=== PATIENT | female | born 1950 | race African-American/Black ===

== ENCOUNTER 2018-05-11 15:04 | Inpatient (IN) | payer MEDICAID, MEDICARE ==
[~2018-05-11] VITALS: Ht 162.6 cm; Wt 100.2 kg
[~2018-05-11 15:04] MED LIST: APAP/CODEINE; ASPRIN; CLONAZEPAM; IBUPROFEN; LOVASTATIN; NEXIUM; [UNRECOGNIZED DRUG - CODE]
[2018-05-11] MEDS ORDERED: SODIUM CHLORIDE 0.9% 1,000 ML IV ONE (15:38)
[2018-05-11] MEDS ORDERED: METHYLPREDNISOLONE SOD SUCC 125 MG/2 ML VIAL IV ONE (15:45)
[2018-05-11 16:09] LABS: BASOPHILS % 0.6 % (0.0-2.0); HEMATOCRIT. 49.1 % (36.0-48.0); HEMOGLOBIN. 15.7 g/dL (12.0-16.0); LYMPHOCYTES % 31.8 % (20.0-50.0); MEAN CORPUSCULAR HEMOGLOBIN 26.5 pg (28.0-32.0); MEAN CORPUSCULAR VOLUME 82.8 fL (81.0-99.0); MEAN PLATELET VOLUME 9.5 fl (7.4-10.4); MONOCYTES % 7.8 % (2.0-8.0); NEUTROPHILS % 58.8 % (40.0-76.0); PLATELET 327 x1000/uL (130-400); RED BLOOD CELL COUNT 5.94 mill/uL (4.2-5.4); RED CELL DISTRIBUTION WIDTH 15.6 % (11.6-14.6)
[2018-05-11 16:13] LABS: CHLORIDE 106 mEq/L (98-107); INR 1.1; PROTHROMBIN TIME 10.7 sec (9.1-11.1)
[2018-05-11] MEDS ORDERED: HYDROCODONE/ACETAMINOPHEN 5/325MG TABLET PO PRN (17:45)
[2018-05-11] MEDS ORDERED: ACETAMINOPHEN 325MG TABLET PO PRN (17:45)
[2018-05-11] MEDS ORDERED: DEXT 5%/0.45% NACL 1000ML 1,000 ML IV SCH (17:45)
[2018-05-11] MEDS ORDERED: DEXTROSE 50% WATER 50ML SYRINGE IV PRN (17:45)
[2018-05-11] MEDS ORDERED: ACETAMINOPHEN 650MG SUPP PR PRN (17:45)
[2018-05-11] MEDS ORDERED: ONDANSETRON HCL 4MG/2ML INJ IV PRN (17:45)
[2018-05-11] MEDS ORDERED: NA PHOS,M-B/NA PHOS,DI-BA ENEMA 118ML PR PRN (17:45)
[2018-05-11] MEDS ORDERED: IPRATROPIUM/ALBUTEROL 0.5-3(2.5)MG/3ML NEB INH PRN (17:45)
[2018-05-11] MEDS ORDERED: MORPHINE SULFATE 4 MG/ML CPJ (NOT FOR IM USE) IV PRN (19:30)
[2018-05-11] MEDS ORDERED: HYDRALAZINE 20MG/ML VIAL IV PRN (19:30)
[2018-05-11 19:31] LABS: CLARITY URINE CLEAR (CLEAR); COLOR URINE YELLOW (YELLOW); KETONES URINE NEGATIVE (NEGATIVE); LEUKOCYTE ESTERASE URINE 2+ (NEGATIVE); NITRITE URINE POSITIVE (NEGATIVE); OCCULT BLOOD URINE NEGATIVE (NEGATIVE); PROTEIN URINE NEGATIVE (NEGATIVE); SPECIFIC GRAVITY URINE 1.008 (1.005-1.030); UROBILINOGEN URINE 0.2 E.U./dL (0.2-1.0)
[2018-05-11 19:46] LABS: *AMPHETAMINES SCREEN URINE NEGATIVE (NEGATIVE); *BARBITURATES SCREEN URINE NEGATIVE (NEGATIVE); *BENZODIAZEPINES SCREEN URINE NEGATIVE (NEGATIVE); *COCAINE SCREEN URINE PRESUMTIVE POSITIVE (NEGATIVE); METHADONE URINE SCREEN NEGATIVE (NEGATIVE); OPIATES URINE SCREEN NEGATIVE (NEGATIVE)
[2018-05-11 19:47] LABS: CANNABINOID URINE SCREEN NEGATIVE (NEGATIVE); PHENCYCLIDINE URINE SCREEN NEGATIVE (NEGATIVE)
[2018-05-11] MEDS ORDERED: CEFTRIAXONE 1 G PREMIX 50 ML IV ONE (20:30)
[2018-05-11] MEDS ORDERED: BLOOD SUGAR DIAGNOSTIC STRIP TEST SCH (21:00)
[2018-05-11] MEDS ORDERED: DIPHENHYDRAMINE 50MG/ML VIAL IV SCH (22:30)
[2018-05-12] MEDS: METHYLPREDNISOLONE SOD SUCC 40 MG/ML VIAL IV SCH ×3 (00:33→16:20)
[2018-05-12] MEDS: INSULIN LISPRO 100 UNITS/ML SUBCUT SCH ×3 (00:34→13:10)
[2018-05-12 00:40] VITALS: BP 123/68
[2018-05-12] MEDS: DIPHENHYDRAMINE 50MG/ML VIAL IV SCH ×3 (03:24→16:20)
[2018-05-12 04:00] VITALS: BP 116/60
[2018-05-12 08:00] VITALS: BP 140/63
[2018-05-12] MEDS: BLOOD SUGAR DIAGNOSTIC STRIP TEST SCH ×2 (08:10→13:10)
[2018-05-12] MEDS ORDERED: FAMOTIDINE 20MG/2ML VIAL IV SCH ×2 (09:00→21:00)
[2018-05-12] MEDS ORDERED: ENOXAPARIN 40MG/0.4ML SYR SUBCUT SCH (09:00)
[2018-05-12] MEDS ORDERED: CHOL50004 PO (11:51)
[2018-05-12] MEDS ORDERED: ALEN70TA46 PO (11:51)
[2018-05-12] MEDS ORDERED: ACET-2178 PO (11:51)
[2018-05-12] MEDS ORDERED: GABA-531 PO (11:51)
[2018-05-12] MEDS ORDERED: DIPH25TA62 PO (11:51)
[2018-05-12 12:00] VITALS: BP 128/70
[2018-05-12] MEDS ORDERED: LEVOFLOXACIN 500MG PREMIX 100 ML IV SCH (12:00)
[2018-05-12 12:49] LABS: BASOPHILS % 0.3 % (0.0-2.0); HEMATOCRIT. 43.3 % (36.0-48.0); LYMPHOCYTES % 8.1 % (20.0-50.0); MEAN CORPUSCULAR HEMOGLOBIN 26.3 pg (28.0-32.0); MEAN CORPUSCULAR VOLUME 81.5 fL (81.0-99.0); MEAN PLATELET VOLUME 9.7 fl (7.4-10.4); MONOCYTES % 3.9 % (2.0-8.0); NEUTROPHILS % 87.7 % (40.0-76.0); PLATELET 298 x1000/uL (130-400); RED BLOOD CELL COUNT 5.31 mill/uL (4.2-5.4); RED CELL DISTRIBUTION WIDTH 15.5 % (11.6-14.6)
[2018-05-12 13:01] LABS: CHLORIDE 108 mEq/L (98-107)
[2018-05-12 13:09] LABS: LDL CHOLESTEROL 108 mg/dL (5-100)
[2018-05-12 13:10] LABS: HDL CHOLESTEROL 35 mg/dL (40-59); T4 FREE 1.13 ng/dL (0.76-1.46)
[2018-05-12 16:00] VITALS: BP 123/67
[2018-05-12 17:02] VITALS: BP 123/67
== END 2018-05-12 17:46 | disposition home or self-care (01) | DRG 811 ==
LOC: ER 15:04 → 7WST 17:19 → SUPCPDRO 19:14 → ENRESERV 20:36 → EDBEDREQ 21:31
PROVIDERS: ADMIT Internal Medicine; ATTEND Internal Medicine
DX: T78.3XXA Angioneurotic edema, initial encounter (principal); B19.20 Unspecified viral hepatitis C without hepatic coma; D72.829 Elevated white blood cell count, unspecified; E11.9 Type 2 diabetes mellitus without complications; E66.9 Obesity, unspecified; E78.00 Pure hypercholesterolemia, unspecified; T46.4X5A Adverse effect of angiotensin-converting-enzyme inhibitors, initial encounter; E78.5 Hyperlipidemia, unspecified; I10 Essential (primary) hypertension; J98.11 Atelectasis; N28.9 Disorder of kidney and ureter, unspecified; Z68.37 Body mass index [BMI] 37.0-37.9, adult; Z79.899 Other long term (current) drug therapy; Z79.82 Long term (current) use of aspirin; Y92.89 Other specified places as the place of occurrence of the external cause
CPT/HCPCS: 36415; 71045; 80061; 80305; 82962; 83036; 84439; 84443; 86850; 86900; 86927; 87077; 87186; 93005; 93306; 93970; 96361; 96365; 96375; 99291; J0696; J1200; J1650; J1815; J1956; J2270; J2405; J2920; J2930; J3490; J7030; P9017

== ENCOUNTER 2019-10-25 22:28 | Inpatient (IN) | payer MEDICARE, MEDICAID ==
[~2019-10-25] VITALS: Ht 170.2 cm; Wt 87.1 kg
[~2019-10-25 22:28] MED LIST changes: +ALEN70TA68 PO; -APAP/CODEINE; +CHOL50004 PO; +DIPH25TA62 PO; +GABA-531 PO; +TOPUD PO; -[UNRECOGNIZED DRUG - CODE]
[2019-10-25] MEDS ORDERED: HYDROCODONE/ACETAMINOPHEN 10/325MG TABLET PO ONE (23:00)
[2019-10-25 23:18] LABS: HEMATOCRIT 43.6 % (36.0-48.0); HEMOGLOBIN 14.7 g/dL (12.0-16.0); MEAN CORPUSCULAR VOLUME 80.5 fL (81.0-99.0); PLATELET 261 x1000/uL (130-400); RED BLOOD CELL COUNT 5.42 mill/uL (4.2-5.4); RED CELL DISTRIBUTION WIDTH 15.6 % (11.6-14.6)
[2019-10-25 23:24] LABS: CHLORIDE 93 mEq/L (98-107)
[2019-10-25 23:31] LABS: BETA HYDROXYBUTYRATE 2.5 mMol/L (0.0-0.3)
[2019-10-26] MEDS ORDERED: POTASSIUM CHLORIDE INJ 40 MEQ in DEXT 5% WATER 250 ML IV NR ×2
[2019-10-26] MEDS ORDERED: SODIUM CHLORIDE 0.9% 1,000 ML IV ONE
[2019-10-26] MEDS ORDERED: MORPHINE SULFATE 4 MG/ML CPJ (NOT FOR IM USE) IV ONE (01:00)
[2019-10-26] MEDS ORDERED: ONDANSETRON 4MG ODT PO ONE (01:00)
[2019-10-26] MEDS ORDERED: DEXTROSE 50% WATER 50ML SYRINGE IV PRN (03:30)
[2019-10-26 03:55] VITALS: BP 139/70
[2019-10-26] MEDS: BLOOD SUGAR DIAGNOSTIC STRIP TEST SCH ×4 (06:48→21:00)
[2019-10-26] MEDS: INSULIN LISPRO 100 UNITS/ML SUBCUT SCH ×4 (06:49→22:20)
[2019-10-26 07:20] LABS: BASOPHILS % 0.6 % (0.0-2.0); EOSINOPHILS % 0.5 % (0.0-5.0); HEMATOCRIT. 41.5 % (36.0-48.0); HEMOGLOBIN. 13.9 g/dL (12.0-16.0); LYMPHOCYTES % 23.6 % (20.0-50.0); MEAN CORPUSCULAR HEMOGLOBIN 27.1 pg (28.0-32.0); MEAN PLATELET VOLUME 10.1 fl (7.4-10.4); MONOCYTES % 11.6 % (2.0-8.0); NEUTROPHILS % 63.7 % (40.0-76.0); PLATELET 211 x1000/uL (130-400); RED BLOOD CELL COUNT 5.13 mill/uL (4.2-5.4); RED CELL DISTRIBUTION WIDTH 15.8 % (11.6-14.6)
[2019-10-26 08:00] VITALS: BP 107/80
[2019-10-26] MEDS ORDERED: POTASSIUM CHLORIDE 20MEQ TABLET SR PO NR (08:15)
[2019-10-26] MEDS: HYDROCODONE/ACETAMINOPHEN 10/325MG TABLET PO PRN ×2 (09:19→22:21)
[2019-10-26] MEDS ORDERED: INSULIN GLARGINE UD 100 UNITS/ML SYR SUBCUT SCH ×2 (10:00→22:00)
[2019-10-26] MEDS: MORPHINE SULFATE 2 MG/ML CPJ (NOT FOR IM USE) IV PRN ×2 (10:48→17:23)
[2019-10-26 12:00] VITALS: BP 99/64
[2019-10-26] MEDS: LORAZEPAM 2MG/ML CPJ IV PRN (13:26)
[2019-10-26 16:00] VITALS: BP 122/60
[2019-10-26 20:00] VITALS: BP 133/77
[2019-10-27] VITALS: BP 112/79
[2019-10-27] MEDS: LORAZEPAM 2MG/ML CPJ IV PRN (00:21)
[2019-10-27] MEDS ORDERED: HYDR-2510 PO (01:29)
[2019-10-27] MEDS ORDERED: ATOR10TA69 PO (01:29)
[2019-10-27] MEDS ORDERED: GLIP5TAB12 PO (01:30)
[2019-10-27] MEDS ORDERED: AMLO10TA80 PO (01:30)
[2019-10-27] MEDS ORDERED: ASPI-1497 PO (01:31)
[2019-10-27] MEDS ORDERED: LEVO125T8 PO (01:32)
[2019-10-27] MEDS ORDERED: METF-416 PO (01:33)
[2019-10-27] MEDS ORDERED: BACL-141 PO (01:33)
[2019-10-27] MEDS ORDERED: GABA800T97 PO (01:34)
[2019-10-27 04:00] VITALS: BP 109/81
[2019-10-27] MEDS: INSULIN LISPRO 100 UNITS/ML SUBCUT SCH ×4 (06:41→21:04)
[2019-10-27] MEDS: BLOOD SUGAR DIAGNOSTIC STRIP TEST SCH ×4 (06:41→21:06)
[2019-10-27] MEDS: HYDROCODONE/ACETAMINOPHEN 10/325MG TABLET PO PRN (06:41)
[2019-10-27 07:31] LABS: BASOPHILS % 0.8 % (0.0-2.0); EOSINOPHILS % 1.7 % (0.0-5.0); HEMATOCRIT. 39.5 % (36.0-48.0); HEMOGLOBIN. 13.1 g/dL (12.0-16.0); LYMPHOCYTES % 21.9 % (20.0-50.0); MEAN CORPUSCULAR HEMOGLOBIN 26.7 pg (28.0-32.0); MEAN CORPUSCULAR VOLUME 80.5 fL (81.0-99.0); MEAN PLATELET VOLUME 10.7 fl (7.4-10.4); MONOCYTES % 13.1 % (2.0-8.0); NEUTROPHILS % 62.5 % (40.0-76.0); PLATELET 220 x1000/uL (130-400); RED BLOOD CELL COUNT 4.91 mill/uL (4.2-5.4); RED CELL DISTRIBUTION WIDTH 15.9 % (11.6-14.6)
[2019-10-27 07:59] LABS: CHLORIDE 101 mEq/L (98-107)
[2019-10-27 08:00] VITALS: BP 133/77
[2019-10-27] MEDS: INSULIN GLARGINE UD 100 UNITS/ML SYR SUBCUT SCH ×2 (09:50→21:14)
[2019-10-27] MEDS ORDERED: TRAM50TA3 MT (11:06)
[2019-10-27] MEDS ORDERED: LANTUSUD SUBCUT (11:06)
[2019-10-27] MEDS ORDERED: POTASSIUM CHLORIDE 20MEQ TABLET SR PO SCH (11:15)
[2019-10-27 12:00] VITALS: BP 138/75
[2019-10-27] MEDS: GLIPIZIDE 5MG TABLET PO SCH (12:51)
[2019-10-27 16:00] VITALS: BP 141/90
[2019-10-27] MEDS: MORPHINE SULFATE 2 MG/ML CPJ (NOT FOR IM USE) IV PRN ×2 (16:00→21:06)
[2019-10-27 20:00] VITALS: BP 148/67
[2019-10-28] VITALS: BP 157/77
[2019-10-28] MEDS: LORAZEPAM 2MG/ML CPJ IV PRN ×2 (01:00→22:19)
[2019-10-28 04:00] VITALS: BP 142/90
[2019-10-28] MEDS: BLOOD SUGAR DIAGNOSTIC STRIP TEST SCH ×3 (06:14→21:00)
[2019-10-28] MEDS: INSULIN LISPRO 100 UNITS/ML SUBCUT SCH ×4 (06:28→21:00)
[2019-10-28 08:00] VITALS: BP 148/108
[2019-10-28] MEDS: MORPHINE SULFATE 2 MG/ML CPJ (NOT FOR IM USE) IV PRN (09:46)
[2019-10-28] MEDS: GLIPIZIDE 5MG TABLET PO SCH ×2 (09:47→18:41)
[2019-10-28] MEDS: INSULIN GLARGINE UD 100 UNITS/ML SYR SUBCUT SCH ×2 (10:03→22:00)
[2019-10-28 12:46] LABS: BASOPHILS % 1.5 % (0.0-2.0); EOSINOPHILS % 0.7 % (0.0-5.0); HEMATOCRIT. 41.3 % (36.0-48.0); LYMPHOCYTES % 21.5 % (20.0-50.0); MEAN PLATELET VOLUME 9.6 fl (7.4-10.4); MONOCYTES % 12.2 % (2.0-8.0); NEUTROPHILS % 64.1 % (40.0-76.0); PLATELET 253 x1000/uL (130-400); RED BLOOD CELL COUNT 5.16 mill/uL (4.2-5.4); RED CELL DISTRIBUTION WIDTH 16.3 % (11.6-14.6)
[2019-10-28 12:49] LABS: CHLORIDE 99 mEq/L (98-107)
[2019-10-28] MEDS: RISPERIDONE 1MG TABLET PO SCH (13:08)
[2019-10-28] MEDS ORDERED: POTASSIUM CHLORIDE 20MEQ TABLET SR PO NR (15:30)
[2019-10-28 16:00] VITALS: BP 156/82
[2019-10-28 20:00] VITALS: BP 126/90
[2019-10-29] VITALS: BP 114/87
[2019-10-29] MEDS: GLIPIZIDE 5MG TABLET PO SCH ×2 (05:45→12:44)
[2019-10-29] MEDS: BLOOD SUGAR DIAGNOSTIC STRIP TEST SCH ×4 (05:56→20:28)
[2019-10-29] MEDS: INSULIN LISPRO 100 UNITS/ML SUBCUT SCH ×4 (07:15→20:28)
[2019-10-29 08:00] VITALS: BP 154/90
[2019-10-29] MEDS: RISPERIDONE 1MG TABLET PO SCH (09:39)
[2019-10-29] MEDS: INSULIN GLARGINE UD 100 UNITS/ML SYR SUBCUT SCH ×2 (10:06→22:02)
[2019-10-29 12:00] VITALS: BP 144/87
[2019-10-29 16:00] VITALS: BP 136/86
[2019-10-29 20:00] VITALS: BP 117/76
[2019-10-30 04:00] VITALS: BP 111/82
[2019-10-30] MEDS: GLIPIZIDE 5MG TABLET PO SCH (06:08)
[2019-10-30] MEDS: BLOOD SUGAR DIAGNOSTIC STRIP TEST SCH ×4 (06:08→22:33)
[2019-10-30] MEDS: INSULIN LISPRO 100 UNITS/ML SUBCUT SCH ×5 (06:26→22:35)
[2019-10-30 12:00] VITALS: BP 108/70
[2019-10-30] MEDS: RISPERIDONE 1MG TABLET PO SCH (12:31)
[2019-10-30] MEDS: INSULIN GLARGINE UD 100 UNITS/ML SYR SUBCUT SCH ×2 (12:32→22:34)
[2019-10-30 16:00] VITALS: BP 142/75
[2019-10-30 20:28] VITALS: BP 128/76
[2019-10-30] MEDS: HYDROCODONE/ACETAMINOPHEN 10/325MG TABLET PO PRN (22:42)
[2019-10-31 00:47] VITALS: BP 102/67
[2019-10-31 04:00] VITALS: BP 121/86
[2019-10-31] MEDS: BLOOD SUGAR DIAGNOSTIC STRIP TEST SCH ×2 (06:06→11:52)
[2019-10-31] MEDS: GLIPIZIDE 5MG TABLET PO SCH (06:06)
[2019-10-31] MEDS: INSULIN LISPRO 100 UNITS/ML SUBCUT SCH ×4 (06:08→12:46)
[2019-10-31 08:00] VITALS: BP 109/69
[2019-10-31] MEDS: RISPERIDONE 1MG TABLET PO SCH (08:56)
[2019-10-31] MEDS ORDERED: HYDROCODONE/ACETAMINOPHEN 10/325MG TABLET PO PRN (09:15)
[2019-10-31] MEDS: INSULIN GLARGINE UD 100 UNITS/ML SYR SUBCUT SCH (09:49)
[2019-10-31 12:00] VITALS: BP 107/76
[2019-10-31 13:13] VITALS: BP 107/76
[2019-10-31 16:00] VITALS: BP 98/53
[2019-10-31] MEDS ORDERED: INSULIN LISPRO 100 UNITS/ML SUBCUT SCH (16:45)
== END 2019-10-31 16:30 | DRG 682 ==
LOC: ER 22:28 → EDBEDREQ 10-26 00:18 → ENRESERV 10-26 01:50 → 5WST 10-26 02:31
PROVIDERS: ADMIT Internal Medicine; ATTEND Internal Medicine
DX: N17.0 Acute kidney failure with tubular necrosis (principal); E11.10 Type 2 diabetes mellitus with ketoacidosis without coma; E87.1 Hypo-osmolality and hyponatremia; E44.1 Mild protein-calorie malnutrition; E87.6 Hypokalemia; E66.9 Obesity, unspecified; I10 Essential (primary) hypertension; E78.5 Hyperlipidemia, unspecified; E87.8 Other disorders of electrolyte and fluid balance, not elsewhere classified; M62.838 Other muscle spasm; Z20.828 Contact with and (suspected) exposure to other viral communicable diseases; E78.00 Pure hypercholesterolemia, unspecified; K75.9 Inflammatory liver disease, unspecified; Z79.1 Long term (current) use of non-steroidal anti-inflammatories (NSAID); Z79.899 Other long term (current) drug therapy; Z68.30 Body mass index [BMI] 30.0-30.9, adult
CPT/HCPCS: 36415; 73100; 80048; 80053; 80061; 82010; 82962; 83036; 85025; 85027; 93970; 96374; 97162; 99291; J1815; J2060; J2270; J3480; J7060; Q0162; U0003-CS